=== PATIENT | male | born 1940 | race Asian ===

== ENCOUNTER 2024-11-15 14:30 | Emergency (ER) | payer OTHER ==
[~2024-11-15] VITALS: Ht 167.6 cm; Wt 85.0 kg
[2024-11-15 14:33] VITALS: BP 165/76; PULSE 72; RESP 18; O2SAT 98
[2024-11-15 16:15] LABS: BASOPHILS % 0.7 % (0.0-2.0); EOSINOPHILS % 2.9 % (0.0-5.0); HEMATOCRIT. 39.8 % (42.0-52.0); HEMOGLOBIN. 13.2 g/dL (14.0-18.0); LYMPHOCYTES % 17.1 % (20.0-50.0); MEAN CORPUSCULAR HGB CONC 33.3 g/dL (31.0-37.0); MEAN CORPUSCULAR VOLUME 93.1 fL (80.0-94.0); MEAN PLATELET VOLUME 7.2 fl (7.4-10.4); MONOCYTES % 8.4 % (2.0-8.0); NEUTROPHILS % 70.9 % (40.0-76.0); PLATELET 215 x1000/uL (130-400); RED BLOOD CELL COUNT 4.27 mill/uL (4.7-6.1); RED CELL DISTRIBUTION WIDTH 13.6 % (11.6-14.6); WHITE BLOOD COUNT 5.2 x1000/uL (4.5-11.0)
[2024-11-15 16:21] LABS: INR 0.9; PROTHROMBIN TIME 10.6 sec (9.6-11.0)
[2024-11-15 16:22] LABS: CHLORIDE 106 mEq/L (98-107); POTASSIUM 4.1 mEq/L (3.5-5.1); SODIUM 141 mEq/L (136-145)
[2024-11-15 16:23] LABS: CARBON DIOXIDE 30 mEq/L (21-32)
[2024-11-15 16:24] LABS: CALCIUM 9.4 mg/dL (8.7-10.4)
[2024-11-15 16:28] LABS: CREATININE 0.8 mg/dL (0.6-1.3); GLUCOSE 71 mg/dL (70-105); UREA NITROGEN BLOOD 18 mg/dL (9-23)
[2024-11-15 16:30] LABS: TROPONIN I HIGH SENSITIVITY 10 ng/L (3.0-53)
== END 2024-11-15 17:25 | disposition left against medical advice (07) ==
LOC: ER 14:30
DX: S83.92XA Sprain of unspecified site of left knee, initial encounter (principal); R10.9 Unspecified abdominal pain; R41.0 Disorientation, unspecified; R94.31 Abnormal electrocardiogram [ECG] [EKG]; S50.02XA Contusion of left elbow, initial encounter; W19.XXXA Unspecified fall, initial encounter; Y93.89 Activity, other specified; Y92.89 Other specified places as the place of occurrence of the external cause; Y99.8 Other external cause status
CPT/HCPCS: 99285; 70450; 71045; 80048; 83880; 85025; 85610; 86850; 86900; 86901; 84484; 36415; 72170; 73080; 73562; 72125; 93005; A4663; A4606